=== PATIENT | female | born 2000 | race Caucasian/White ===

== ENCOUNTER 2020-11-09 17:57 | Emergency (ER) | payer OTHER ==
[~2020-11-09 17:57] MED LIST: TAMIFLU75 MG PO
[2020-11-09 20:49] LABS: HEMOGLOBIN 13.7 gm/dl (12.3-15.3); RED BLOOD COUNT 4.44 M/UL (4.00-5.10); WHITE BLOOD COUNT 6.7 K/UL (4.5-11.0)
[2020-11-09 21:07] LABS: BUN/CREATININE RATIO 17 (0-10)
[2020-11-09] MEDS ORDERED: MACROBID 100 M100 M1 PO (21:40)
== END 2020-11-09 21:59 | disposition home or self-care (01) ==
LOC: ER1 17:57
PROVIDERS: Physician Assistant
DX: O99.612 Diseases of the digestive system complicating pregnancy, second trimester (principal); K08.89 Other specified disorders of teeth and supporting structures; O23.42 Unspecified infection of urinary tract in pregnancy, second trimester; O99.282 Endocrine, nutritional and metabolic diseases complicating pregnancy, second trimester; E86.0 Dehydration; Z79.899 Other long term (current) drug therapy; Z3A.21 21 weeks gestation of pregnancy
CPT/HCPCS: 80048; 81001; 85025; 96365; 99283; J0696

== ENCOUNTER 2020-12-02 21:42 | Emergency (ER) | payer OTHER ==
[~2020-12-02 21:42] MED LIST changes: +MACROBID 100 M100 M1 PO
[2020-12-03 00:43] LABS: HEMOGLOBIN 12.7 gm/dl (12.3-15.3); RED BLOOD COUNT 4.15 M/UL (4.00-5.10); WHITE BLOOD COUNT 11.3 K/UL (4.5-11.0)
[2020-12-03 01:03] LABS: BUN/CREATININE RATIO 16 (0-10)
[2020-12-03] MEDS ORDERED: CLEOCIN HCL300 MG PO (01:39)
== END 2020-12-03 03:12 | disposition home or self-care (01) ==
LOC: ER1 21:42
PROVIDERS: Emergency Medicine
DX: O99.712 Diseases of the skin and subcutaneous tissue complicating pregnancy, second trimester (principal); L02.31 Cutaneous abscess of buttock
CPT/HCPCS: 10060; 80053; 85025; 87040; 96365; 99283

== ENCOUNTER → 2020-12-28 | Outpatient (CLI) | payer OTHER ==
[~2020-12-28] MED LIST changes: +CARAFATE1 GM PO; +CLEOCIN HCL300 MG PO; +DOCUSATE SODIU100 MG PO; +HYDROCODON-ACE1 EAC4 PO; +IBUPROFEN600 MG PO; +LOPRESSOR 25 MG25 MG PO; +PEPCID20 MG PO; +PRENATAL VITAM1 EAC3 PO
== END ==
LOC: HEART 5 14:27
DX: R55 Syncope and collapse (principal); I49.3 Ventricular premature depolarization; I49.1 Atrial premature depolarization

== ENCOUNTER 2021-01-29 17:51 | Outpatient (CLI) | payer OTHER ==
[~2021-01-29 17:51] MED LIST changes: -CARAFATE1 GM PO; -DOCUSATE SODIU100 MG PO; -HYDROCODON-ACE1 EAC4 PO; -IBUPROFEN600 MG PO; -LOPRESSOR 25 MG25 MG PO; -PEPCID20 MG PO; -PRENATAL VITAM1 EAC3 PO
== END 2021-01-29 20:38 | disposition home or self-care (01) ==
LOC: GENOP 17:51
DX: O26.893 Other specified pregnancy related conditions, third trimester (principal); R10.2 Pelvic and perineal pain; Z3A.32 32 weeks gestation of pregnancy
CPT/HCPCS: 82731; G0463

== ENCOUNTER → 2021-02-15 | Outpatient (CLI) | payer OTHER ==
[~2021-02-15] MED LIST changes: +CARAFATE1 GM PO; +DOCUSATE SODIU100 MG PO; +HYDROCODON-ACE1 EAC4 PO; +IBUPROFEN600 MG PO; +LOPRESSOR 25 MG25 MG PO; +PEPCID20 MG PO; +PRENATAL VITAM1 EAC3 PO
== END ==
LOC: GENOP 04:26
DX: O10.913 Unspecified pre-existing hypertension complicating pregnancy, third trimester (principal); O36.8130 Decreased fetal movements, third trimester, not applicable or unspecified; Z3A.34 34 weeks gestation of pregnancy; Z79.899 Other long term (current) drug therapy
CPT/HCPCS: 81001; 93970; 96360; 96367

== ENCOUNTER 2021-02-19 13:40 | Outpatient (CLI) | payer OTHER ==
[~2021-02-19 13:40] MED LIST changes: -CARAFATE1 GM PO; -DOCUSATE SODIU100 MG PO; -HYDROCODON-ACE1 EAC4 PO; -IBUPROFEN600 MG PO; -LOPRESSOR 25 MG25 MG PO; -PEPCID20 MG PO; -PRENATAL VITAM1 EAC3 PO
== END 2021-02-19 16:05 | disposition home or self-care (01) ==
LOC: GENOP 13:40
DX: O99.891 Other specified diseases and conditions complicating pregnancy (principal); M62.838 Other muscle spasm; R00.0 Tachycardia, unspecified; Z91.030 Bee allergy status; Z3A.35 35 weeks gestation of pregnancy; Z79.899 Other long term (current) drug therapy
CPT/HCPCS: 81001

== ENCOUNTER 2021-03-04 16:31 | Inpatient (IN) | payer OTHER ==
[~2021-03-04] VITALS: Ht 172.7 cm; Wt 112.0 kg
[2021-03-04 17:31] LABS: HEMOGLOBIN 12.6 gm/dl (12.3-15.3); RED BLOOD COUNT 4.1 M/UL (4.00-5.10); WHITE BLOOD COUNT 9.5 K/UL (4.5-11.0)
[2021-03-04] MEDS ORDERED: LOPRESSOR 25 MG25 MG PO (18:30)
[2021-03-04] MEDS ORDERED: PRENATAL VITAM1 EAC3 PO (18:32)
[2021-03-04] MEDS ORDERED: PEPCID20 MG PO (18:32)
[2021-03-04] MEDS ORDERED: CARAFATE1 GM PO (18:33)
[2021-03-05] MEDS ORDERED: IBUPROFEN600 MG PO (17:19)
[2021-03-05] MEDS ORDERED: DOCUSATE SODIU100 MG PO (17:19)
[2021-03-05] MEDS ORDERED: HYDROCODON-ACE1 EAC4 PO (17:19)
[2021-03-06 05:56] LABS: HEMOGLOBIN 10.7 gm/dl (12.3-15.3)
== END 2021-03-07 12:50 | disposition home or self-care (01) | DRG 788 ==
LOC: GENOP 16:31 → OB 17:06
PROVIDERS: Obstetrics & Gynecology; ADMIT Obstetrics & Gynecology
PROC: 10D00Z1 Extraction of Products of Conception, Low, Open Approach (ICD-10-PCS; 2021-03-05)
PROC: 10907ZC Drainage of Amniotic Fluid, Therapeutic from Products of Conception, Via Natural or Artificial Opening (ICD-10-PCS; 2021-03-05)
PROC: 10H07YZ Insertion of Other Device into Products of Conception, Via Natural or Artificial Opening (ICD-10-PCS; 2021-03-05)
PROC: 10H07YZ Insertion of Other Device into Products of Conception, Via Natural or Artificial Opening (ICD-10-PCS; principal; 2021-03-05 18:10)
DX: O14.04 Mild to moderate pre-eclampsia, complicating childbirth (principal); O99.824 Streptococcus B carrier state complicating childbirth; Z3A.37 37 weeks gestation of pregnancy; Z37.0 Single live birth; O13.4 Gestational [pregnancy-induced] hypertension without significant proteinuria, complicating childbirth; O36.8330 Maternal care for abnormalities of the fetal heart rate or rhythm, third trimester, not applicable or unspecified
CPT/HCPCS: 36415; 81001; 82800; 85014; 85018; 85025; 90715; C9113; J0690; J1650; J1885; J2001; J2250; J2274; J2405; J2590; J2795; J3010; J7120; U0003

== ENCOUNTER 2021-03-14 14:28 | Emergency (ER) | payer OTHER ==
[~2021-03-14 14:28] MED LIST changes: +CARAFATE1 GM PO; +DOCUSATE SODIU100 MG PO; +HYDROCODON-ACE1 EAC4 PO; +IBUPROFEN600 MG PO; +LOPRESSOR 25 MG25 MG PO; +PEPCID20 MG PO; +PRENATAL VITAM1 EAC3 PO
[2021-03-14 16:24] LABS: BUN/CREATININE RATIO 19 (0-10)
[2021-03-14 16:25] LABS: HEMOGLOBIN 12.7 gm/dl (12.3-15.3); RED BLOOD COUNT 4.22 M/UL (4.00-5.10); WHITE BLOOD COUNT 8.9 K/UL (4.5-11.0)
== END 2021-03-14 20:35 | disposition home or self-care (01) ==
LOC: ER1 14:28
PROVIDERS: Emergency Medicine
DX: R07.89 Other chest pain (principal); Z91.030 Bee allergy status
CPT/HCPCS: 71045; 80053; 81001; 82550; 82553; 83690; 83874; 83880; 84484; 85025; 85379; 93005; 96374; 96375; 99285; J2270; J2405; Q9967

== ENCOUNTER → 2021-05-23 | Outpatient (CLI) | payer OTHER | LOC: EXRD 08:02 | DX: R10.9 Unspecified abdominal pain (principal) | CPT/HCPCS: 76705 ==

== ENCOUNTER 2021-09-23 00:05 | Emergency (ER) | payer OTHER ==
[2021-09-23] MEDS ORDERED: BENADRYL 25MG C25 MG PO (01:08)
[2021-09-23] MEDS ORDERED: PREDNISONE10 MG PO (01:08)
== END 2021-09-23 03:10 | disposition home or self-care (01) ==
LOC: ER1 00:05
DX: L50.9 Urticaria, unspecified (principal)
CPT/HCPCS: 84703; 96372; 99283; J1100

== ENCOUNTER 2021-10-01 16:56 | Emergency (ER) | payer OTHER ==
[~2021-10-01 16:56] MED LIST changes: +BENADRYL 25MG C25 MG PO; +PREDNISONE10 MG PO
[2021-10-01] MEDS ORDERED: IBUPROFEN600 MG PO (19:23)
== END 2021-10-01 19:40 | disposition home or self-care (01) ==
LOC: ER1 16:56
DX: S93.401A Sprain of unspecified ligament of right ankle, initial encounter (principal); X58.XXXA Exposure to other specified factors, initial encounter
CPT/HCPCS: 73590; 73600; 73620; 99283

== ENCOUNTER 2021-10-08 14:11 | Emergency (ER) | payer OTHER | END 2021-10-08 15:55 | disposition home or self-care (01) | LOC: ER1 14:11 | DX: U07.1 COVID-19 (principal) | CPT/HCPCS: 0240U; 87081; 87880; 99283; J1200; J2930 ==

== ENCOUNTER → 2022-01-25 | Outpatient (CLI) | payer OTHER | LOC: RAD 11:13 | DX: M25.562 Pain in left knee (principal) | CPT/HCPCS: 73562 ==

== ENCOUNTER → 2022-02-08 | Outpatient (CLI) | payer OTHER | LOC: KOH-I 14:30 | DX: R51.9 Headache, unspecified (principal); R07.89 Other chest pain | CPT/HCPCS: 70450; 71045 ==

== ENCOUNTER → 2022-04-18 | Outpatient (CLI) | payer OTHER | LOC: KOH-I 04-17 16:30 | DX: R10.9 Unspecified abdominal pain (principal) | CPT/HCPCS: 74176 ==

== ENCOUNTER → 2022-05-13 | Outpatient (CLI) | payer OTHER | LOC: HEART 5 13:04 | DX: M79.89 Other specified soft tissue disorders (principal) | CPT/HCPCS: 93970 ==